=== PATIENT | male | born 1985 | race Caucasian/White ===

== ENCOUNTER 2023-03-08 19:11 | Emergency (ER) | payer BC ==
[2023-03-08 20:13] LABS: #Eosinphils 0.1 thou/uL (0.0-0.7); #Monocytes 0.6 thou/uL (0.11-0.59); %Basophils 0.3 % (0.0-1.0); %Eosinophils 0.8 % (0.0-10.0); %Lymphocytes 26.5 % (21.0-51.0); %Monocytes 8.1 % (0.0-10.0); %Neutrophils 64.2 % (42.0-75.0); Hematocrit 41.6 % (42.0-52.0); Hemoglobin 14.2 g/dL (14.0-18.0); Mean Corpuscular HGB CONC 34.1 g/dL (32.0-36.0); Mean Corpuscular Hemoglobin 30.4 pg (27.0-31.0); Mean Corpuscular Volume 89.1 fl (78.0-98.0); Mean Platelet Volume 8.8 fL (7.4-10.4); Platelet Count 178 10x3/uL (130-400); RBC Distribution Width 13.1 % (11.5-14.5); Red Blood Cell (RBC) Count 4.67 mill/uL (4.70-6.10); White Blood Cell (WBC) Count 7.8 10x3/uL (4.8-10.8)
[2023-03-08 20:35] LABS: ALT (SGPT) 26 U/L (8-55); AST (SGOT) 44 U/L (5-34); Albumin 4.6 g/dL (3.5-5.0); Alkaline Phosphatase 49 U/L (40-110); Anion Gap 13 mmol/L (10-20); BUN (Urea Nitrogen) 21 mg/dL (8.9-20.6); Bilirubin, Total 0.4 mg/dL (0.2-1.2); Calc. Creatinine Clearance 0 mL/min (70-130); Calcium 9.6 mg/dL (7.8-10.44); Carbon Dioxide 22 mmol/L (22-29); Chloride 108 mmol/L (98-107); Estimated GFR 77; Globulin 2.3 g/dL (2.4-3.5); Glucose 92 mg/dL (70-105); Potassium 3.6 mmol/L (3.5-5.1); Protein, Total 6.9 g/dL (6.0-8.3); Sodium 139 mmol/L (136-145)
[2023-03-09] MEDS ORDERED: Cephalexin 250 MG CAP ONE (00:40)
== END 2023-03-09 00:53 | disposition home or self-care (01) ==
LOC: ERS 19:11
DX: T20.10XA Burn of first degree of head, face, and neck, unspecified site, initial encounter (principal); W94.0XXA Exposure to prolonged high air pressure, initial encounter
CPT/HCPCS: 36415; 70360; 70450; 70486; 71045; 72125; 80053; 85025